=== PATIENT | female | born 1965 | race Caucasian/White ===

== ENCOUNTER 2023-07-08 15:01 | Inpatient (IN) | payer OTHER ==
[2023-07-08] MEDS ORDERED: diazePAM CARPU-JECT 10 MG/2 ML DISP.SYRIN IVPUSH ONE ×3 (16:13→19:08)
[2023-07-08] MEDS ORDERED: SODIUM CHLORIDE 0.9% 500 ML INFUS.BAG IV ONE (16:13)
[2023-07-08] MEDS ORDERED: diazePAM CARPU-JECT 10 MG/2 ML DISP.SYRIN ONE ×3 (16:25→19:20)
[2023-07-08] MEDS ORDERED: THIAMINE HCL 200 MG/2 ML VIAL IM ONE (16:30)
[2023-07-08] MEDS ORDERED: FOLIC ACID 5 MG/1 ML SQ ONE (16:30)
[2023-07-08] MEDS ORDERED: THIAMINE HCL 200 MG/2 ML VIAL ONE (16:43)
[2023-07-08] MEDS ORDERED: THIAMINE HCL 200 MG/2 ML VIAL IVPB ONE (16:44)
[2023-07-08] MEDS ORDERED: FOLIC ACID 5 MG/1 ML IVPB ONE ×2 (16:45→16:46)
[2023-07-08 16:55] LABS: BASO % 0.7 % (0-2.0); EOS % 0.4 % (0-4.5); HEMATOCRIT 38.9 % (32.4-45.2); HEMOGLOBIN 13.7 GM/dL (10.7-15.3); LYMPH % 22.2 % (8-40); MCH 34.9 pg (25.7-33.7); MCHC 35.1 g/dl (32.0-36.0); MEAN CELL VOLUME 99.5 fl (80-96); MEAN PLT VOLUME 6.4 fl (7.5-11.1); MONO % 9.5 % (3.8-10.2); NEUT % 67.2 % (42.8-82.8); PLATELET COUNT 324 10^3/uL (134-434); RBC 3.91 M/mm3 (3.60-5.2); RDW 14.7 % (11.6-15.6); WHITE BLOOD COUNT 7.4 K/mm3 (4.0-10.0)
[2023-07-08 17:20] LABS: BLOOD UREA NITROGEN 14.5 mg/dL (7-18); CALCIUM 8.8 mg/dL (8.5-10.1)
[2023-07-08 17:21] LABS: ALBUMIN 3.6 g/dl (3.4-5.0); MAGNESIUM 1.8 mg/dL (1.8-2.4)
[2023-07-08 17:24] LABS: CREATININE 0.6 mg/dL (0.55-1.3); PHOSPHOROUS 2.6 mg/dL (2.5-4.9)
[2023-07-08 17:25] LABS: BILIRUBIN,TOTAL 0.6 mg/dL (0.2-1); TOT PROT 7.3 g/dl (6.4-8.2)
[2023-07-08] MEDS: DEXTROSE 5%-LACTATED RINGERS 1,000 ML IV SCH (18:13)
[2023-07-08] MEDS ORDERED: TRIMETHOBENZAMIDE HCL 200MG/2ML INJ IM PRN (18:25)
[2023-07-08 18:41] LABS: EPI CELLS 31 /uL (0-25.1); HYALINE CASTS 1 /uL (0-3.1); PH,URINE 5.5 (5.0-8.0); URINE APPEARANCE CLEAR; URINE BACTERIA 146 /uL (0-1359); URINE BILIRUBIN NEGATIVE (NEGATIVE); URINE COLOR YELLOW; URINE GLUCOSE (UA) NEGATIVE (NEGATIVE); URINE KETONE 2+ (NEGATIVE); URINE LEUK ESTERASE 1+ (NEGATIVE); URINE NITRITE NEGATIVE (NEGATIVE); URINE PROTEIN TRACE (NEGATIVE); URINE RBC 28 /uL (0-23.9); URINE UROBILINOGEN 0.2 mg/dL (0.2-1.0); URINE WBC 30 /uL (0-25.8)
[2023-07-08] MEDS ORDERED: LORazepam 1 MG TABLET PO ONE (19:00)
[2023-07-08] MEDS ORDERED: LORazepam 1 MG TABLET ONE ×2 (19:20→22:28)
[2023-07-08 19:50] LABS: INR 0.99 (0.83-1.09); PROTHROMBIN TIME (PATIENT) 11.5 SEC (9.7-13.0)
[2023-07-08] MEDS ORDERED: SERTRALINE HCL 50 MG TABLET (FP) ONE (20:52)
[2023-07-08] MEDS: SERTRALINE HCL 50 MG TABLET (FP) PO SCH (21:12)
[2023-07-08] MEDS: LORazepam 1 MG TABLET PO SCH (22:42)
[2023-07-09] MEDS ORDERED: LORazepam 1 MG TABLET ONE ×2 (02:14→05:00)
[2023-07-09] MEDS: LORazepam 1 MG TABLET PO PRN ×2 (02:16→07:53)
[2023-07-09] MEDS: LORazepam 1 MG TABLET PO SCH ×4 (05:02→22:24)
[2023-07-09 05:59] VITALS: BMI 27.5
[2023-07-09] MEDS ORDERED: BISMUTH SUBSALICYLATE 524 MG/30 ML PO PRN (08:48)
[2023-07-09] MEDS ORDERED: DICYCLOMINE HCL 10 MG CAPSULE PO PRN (08:48)
[2023-07-09] MEDS ORDERED: LOPERAMIDE HCL 2 MG CAPSULE PO PRN (08:48)
[2023-07-09] MEDS ORDERED: MAGNESIUM HYDROX 2400MG/30ML ORAL SUSPENSION 30 ML CUP PO PRN (08:48)
[2023-07-09] MEDS ORDERED: PRENATAL VITAMINS W/ FOLIC ACID TABLET (FP) PO SCH (10:00)
[2023-07-09] MEDS: ENOXAPARIN NA (PORCINE) 40 MG/0.4 ML DISP.SYRIN SQ SCH (10:31)
[2023-07-09] MEDS: MULTIVITAMINS THER W-MINERALS COMBO TABLET (FP) PO SCH (10:31)
[2023-07-09] MEDS: FOLIC ACID 1 MG TABLET (FP) PO SCH (10:32)
[2023-07-09] MEDS: THIAMINE HCL 100 MG TABLET (FP) PO SCH (10:32)
[2023-07-09 11:02] LABS: INR 0.97 (0.83-1.09); PROTHROMBIN TIME (PATIENT) 11.2 SEC (9.7-13.0)
[2023-07-09 11:03] LABS: BASO % 0.4 % (0-2.0); EOS % 0.9 % (0-4.5); HEMATOCRIT 41.5 % (32.4-45.2); HEMOGLOBIN 14.8 GM/dL (10.7-15.3); LYMPH % 13.1 % (8-40); MCH 35.4 pg (25.7-33.7); MCHC 35.7 g/dl (32.0-36.0); MEAN CELL VOLUME 99.2 fl (80-96); MEAN PLT VOLUME 6.9 fl (7.5-11.1); MONO % 7.1 % (3.8-10.2); NEUT % 78.5 % (42.8-82.8); PLATELET COUNT 279 10^3/uL (134-434); RBC 4.19 M/mm3 (3.60-5.2); RDW 14.6 % (11.6-15.6); WHITE BLOOD COUNT 7.8 K/mm3 (4.0-10.0)
[2023-07-09] MEDS ORDERED: diazePAM CARPU-JECT 10 MG/2 ML DISP.SYRIN IVPUSH PRN ×2 (11:33→11:35)
[2023-07-09 11:42] LABS: POTASSIUM 3.6 mmol/L (3.5-5.1)
[2023-07-09 11:51] LABS: BLOOD UREA NITROGEN 8.4 mg/dL (7-18)
[2023-07-09 11:52] LABS: ALBUMIN 3.9 g/dl (3.4-5.0); TOT PROT 7.3 g/dl (6.4-8.2)
[2023-07-09 11:53] LABS: BILIRUBIN,TOTAL 1.9 mg/dL (0.2-1)
[2023-07-09 11:54] LABS: CALCIUM 9.1 mg/dL (8.5-10.1)
[2023-07-09 11:55] LABS: CREATININE 0.6 mg/dL (0.55-1.3); MAGNESIUM 1.9 mg/dL (1.8-2.4); PHOSPHOROUS 1.9 mg/dL (2.5-4.9)
[2023-07-09] MEDS: diazePAM CARPU-JECT 10 MG/2 ML DISP.SYRIN IM PRN ×2 (13:08→20:22)
[2023-07-09] MEDS: NAPH,MB-DB/K PH,MBDB POWDER PACKET PO SCH ×2 (15:26→22:24)
[2023-07-09] MEDS: CEFTRIAXONE 1 GM in DEXTROSE 5%-WATER - 50 ML IVPB SCH (16:13)
[2023-07-09] MEDS: DEXTROSE 5%-LACTATED RINGERS 1,000 ML IV SCH (17:49)
[2023-07-09] MEDS: SERTRALINE HCL 50 MG TABLET (FP) PO SCH (22:24)
[2023-07-10] MEDS: LORazepam 1 MG TABLET PO SCH ×4 (06:10→22:05)
[2023-07-10] MEDS: NAPH,MB-DB/K PH,MBDB POWDER PACKET PO SCH ×3 (06:11→21:52)
[2023-07-10 09:08] LABS: EOS % 3.8 % (0-4.5); HEMATOCRIT 42.6 % (32.4-45.2); HEMOGLOBIN 14.8 GM/dL (10.7-15.3); LYMPH % 27.1 % (8-40); MCH 34.7 pg (25.7-33.7); MCHC 34.8 g/dl (32.0-36.0); MEAN CELL VOLUME 99.7 fl (80-96); MEAN PLT VOLUME 6.9 fl (7.5-11.1); MONO % 7.7 % (3.8-10.2); NEUT % 60.4 % (42.8-82.8); PLATELET COUNT 259 10^3/uL (134-434); RBC 4.27 M/mm3 (3.60-5.2); RDW 14.3 % (11.6-15.6); WHITE BLOOD COUNT 5.4 K/mm3 (4.0-10.0)
[2023-07-10 09:11] LABS: PROTHROMBIN TIME (PATIENT) 11.6 SEC (9.7-13.0)
[2023-07-10 09:28] LABS: POTASSIUM 3.4 mmol/L (3.5-5.1)
[2023-07-10 09:30] LABS: CALCIUM 8.8 mg/dL (8.5-10.1)
[2023-07-10 09:31] LABS: ALBUMIN 3.6 g/dl (3.4-5.0); BLOOD UREA NITROGEN 10.2 mg/dL (7-18); MAGNESIUM 1.9 mg/dL (1.8-2.4)
[2023-07-10 09:34] LABS: CREATININE 0.7 mg/dL (0.55-1.3)
[2023-07-10 09:35] LABS: BILIRUBIN,TOTAL 1.2 mg/dL (0.2-1); TOT PROT 6.9 g/dl (6.4-8.2)
[2023-07-10] MEDS: MULTIVITAMINS THER W-MINERALS COMBO TABLET (FP) PO SCH (09:42)
[2023-07-10] MEDS: FOLIC ACID 1 MG TABLET (FP) PO SCH (09:42)
[2023-07-10] MEDS: ENOXAPARIN NA (PORCINE) 40 MG/0.4 ML DISP.SYRIN SQ SCH (09:42)
[2023-07-10] MEDS: CEFTRIAXONE 1 GM in DEXTROSE 5%-WATER - 50 ML IVPB SCH (09:42)
[2023-07-10] MEDS: THIAMINE HCL 100 MG TABLET (FP) PO SCH (09:42)
[2023-07-10] MEDS ORDERED: POTASSIUM CHLORIDE TABS 20 MEQ TABLET.ER (FP) PO ONE (10:06)
[2023-07-10] MEDS: diazePAM CARPU-JECT 10 MG/2 ML DISP.SYRIN IM PRN ×2 (10:34→20:38)
[2023-07-10] MEDS: LORazepam 1 MG TABLET PO PRN (14:36)
[2023-07-10] MEDS: SERTRALINE HCL 50 MG TABLET (FP) PO SCH (21:52)
[2023-07-11] MEDS ORDERED: LORazepam 0.5 MG TABLET PO PRN
[2023-07-11] MEDS: LORazepam 0.5 MG TABLET PO SCH ×4 (05:18→22:28)
[2023-07-11] MEDS: THIAMINE HCL 100 MG TABLET (FP) PO SCH (09:04)
[2023-07-11] MEDS: hydrOXYzine PAMOATE 25 MG CAPSULE (FP) PO PRN (09:04)
[2023-07-11] MEDS: FOLIC ACID 1 MG TABLET (FP) PO SCH (09:04)
[2023-07-11] MEDS: MULTIVITAMINS THER W-MINERALS COMBO TABLET (FP) PO SCH (09:04)
[2023-07-11] MEDS: ENOXAPARIN NA (PORCINE) 40 MG/0.4 ML DISP.SYRIN SQ SCH (09:04)
[2023-07-11] MEDS: CEFTRIAXONE 1 GM in DEXTROSE 5%-WATER - 50 ML IVPB SCH (09:05)
[2023-07-11 10:13] LABS: BASO % 0.6 % (0-2.0); EOS % 5.5 % (0-4.5); HEMATOCRIT 41.5 % (32.4-45.2); HEMOGLOBIN 14.3 GM/dL (10.7-15.3); LYMPH % 29.1 % (8-40); MCH 35.1 pg (25.7-33.7); MCHC 34.5 g/dl (32.0-36.0); MEAN CELL VOLUME 101.8 fl (80-96); MEAN PLT VOLUME 7.5 fl (7.5-11.1); NEUT % 56.8 % (42.8-82.8); PLATELET COUNT 249 10^3/uL (134-434); RBC 4.08 M/mm3 (3.60-5.2); RDW 14.2 % (11.6-15.6); WHITE BLOOD COUNT 5.2 K/mm3 (4.0-10.0)
[2023-07-11 10:27] LABS: POTASSIUM 3.7 mmol/L (3.5-5.1)
[2023-07-11 10:42] LABS: ALBUMIN 3.4 g/dl (3.4-5.0); BLOOD UREA NITROGEN 11.2 mg/dL (7-18)
[2023-07-11 10:45] LABS: CREATININE 0.6 mg/dL (0.55-1.3)
[2023-07-11 10:46] LABS: BILIRUBIN,TOTAL 1.2 mg/dL (0.2-1); TOT PROT 6.8 g/dl (6.4-8.2)
[2023-07-11] MEDS ORDERED: ALBUTEROL SO4 HFA INHALER IH PRN (14:07)
[2023-07-11] MEDS: CEPHALEXIN MONOHYDRATE 500 MG CAPSULE (UD) PO SCH ×2 (14:36→17:16)
[2023-07-11] MEDS: SERTRALINE HCL 50 MG TABLET (FP) PO SCH (21:38)
[2023-07-12] MEDS ORDERED: LORazepam 0.5 MG TABLET PO ONE (05:00)
[2023-07-12] MEDS: CEPHALEXIN MONOHYDRATE 500 MG CAPSULE (UD) PO SCH ×3 (05:25→11:52)
[2023-07-12] MEDS: cloNIDine HCL 0.1 MG TABLET PO SCH ×2 (10:30→21:50)
[2023-07-12] MEDS: FOLIC ACID 1 MG TABLET (FP) PO SCH (10:30)
[2023-07-12] MEDS: MULTIVITAMINS THER W-MINERALS COMBO TABLET (FP) PO SCH (10:30)
[2023-07-12] MEDS: THIAMINE HCL 100 MG TABLET (FP) PO SCH (10:30)
[2023-07-12] MEDS: ENOXAPARIN NA (PORCINE) 40 MG/0.4 ML DISP.SYRIN SQ SCH (10:30)
[2023-07-12] MEDS: diazePAM CARPU-JECT 10 MG/2 ML DISP.SYRIN IM PRN (10:31)
[2023-07-12 11:18] LABS: BASO % 0.8 % (0-2.0); EOS % 5.3 % (0-4.5); HEMATOCRIT 41.7 % (32.4-45.2); HEMOGLOBIN 14.7 GM/dL (10.7-15.3); MCH 35.4 pg (25.7-33.7); MCHC 35.4 g/dl (32.0-36.0); MEAN CELL VOLUME 100.1 fl (80-96); MONO % 8.9 % (3.8-10.2); PLATELET COUNT 254 10^3/uL (134-434); RBC 4.16 M/mm3 (3.60-5.2); RDW 14.6 % (11.6-15.6); WHITE BLOOD COUNT 5.8 K/mm3 (4.0-10.0)
[2023-07-12 11:43] LABS: POTASSIUM 3.7 mmol/L (3.5-5.1)
[2023-07-12 11:51] LABS: ALBUMIN 3.6 g/dl (3.4-5.0); BLOOD UREA NITROGEN 15.5 mg/dL (7-18); CALCIUM 8.9 mg/dL (8.5-10.1); MAGNESIUM 2.1 mg/dL (1.8-2.4)
[2023-07-12 11:54] LABS: CREATININE 0.7 mg/dL (0.55-1.3)
[2023-07-12 11:55] LABS: TOT PROT 6.9 g/dl (6.4-8.2)
[2023-07-12] MEDS: hydrOXYzine PAMOATE 25 MG CAPSULE (FP) PO PRN (13:21)
[2023-07-12] MEDS: SERTRALINE HCL 50 MG TABLET (FP) PO SCH (21:51)
[2023-07-12] MEDS: diazePAM 5 MG TABLET PO PRN (23:19)
[2023-07-13] MEDS: diazePAM 5 MG TABLET PO PRN (09:09)
[2023-07-13 10:03] LABS: BASO % 0.9 % (0-2.0); EOS % 5.4 % (0-4.5); HEMATOCRIT 41.1 % (32.4-45.2); HEMOGLOBIN 13.8 GM/dL (10.7-15.3); LYMPH % 24.1 % (8-40); MCH 34.6 pg (25.7-33.7); MCHC 33.6 g/dl (32.0-36.0); MEAN PLT VOLUME 7.6 fl (7.5-11.1); MONO % 6.4 % (3.8-10.2); NEUT % 63.2 % (42.8-82.8); PLATELET COUNT 241 10^3/uL (134-434); RDW 14.2 % (11.6-15.6); WHITE BLOOD COUNT 5.7 K/mm3 (4.0-10.0)
[2023-07-13] MEDS: THIAMINE HCL 100 MG TABLET (FP) PO SCH (10:06)
[2023-07-13] MEDS: FOLIC ACID 1 MG TABLET (FP) PO SCH (10:06)
[2023-07-13] MEDS: ENOXAPARIN NA (PORCINE) 40 MG/0.4 ML DISP.SYRIN SQ SCH (10:06)
[2023-07-13] MEDS: cloNIDine HCL 0.1 MG TABLET PO SCH ×2 (10:06→13:18)
[2023-07-13] MEDS: MULTIVITAMINS THER W-MINERALS COMBO TABLET (FP) PO SCH (10:06)
[2023-07-13 10:24] LABS: POTASSIUM 3.8 mmol/L (3.5-5.1)
[2023-07-13 10:31] LABS: ALBUMIN 3.4 g/dl (3.4-5.0); BLOOD UREA NITROGEN 16.7 mg/dL (7-18); CALCIUM 8.7 mg/dL (8.5-10.1); MAGNESIUM 2.3 mg/dL (1.8-2.4)
[2023-07-13 10:34] LABS: CREATININE 0.7 mg/dL (0.55-1.3)
[2023-07-13 10:36] LABS: BILIRUBIN,TOTAL 0.7 mg/dL (0.2-1); TOT PROT 6.7 g/dl (6.4-8.2)
[2023-07-13 16:04] VITALS: BP 115/79; PULSE 72; RESP 16; TEMP 98
== END 2023-07-13 16:51 | disposition home or self-care (01) | DRG 896 ==
LOC: JER 15:01 → JERBED 18:08 → J8W 07-09 05:26
PROVIDERS: ADMIT Internal Medicine; ATTEND Nurse Practitioner Family
PROC: HZ2ZZZZ Detoxification Services for Substance Abuse Treatment (ICD-10-PCS; principal; 2023-07-08)
DX: F10.239 Alcohol dependence with withdrawal, unspecified (principal); U07.1 COVID-19; N39.0 Urinary tract infection, site not specified; F41.9 Anxiety disorder, unspecified; R74.01 Elevation of levels of liver transaminase levels; B95.1 Streptococcus, group B, as the cause of diseases classified elsewhere
CPT/HCPCS: 36415; 71045-TC-FY; 76705-TC; 80053; 81003; 83735; 84100; 85025; 85379; 85610; 86140; 86704; 86706; 86708; 86803; 87077; 87086; 87517; 87635; 93005; 93010; 99285-25